=== PATIENT | male | born 2000 | race Hispanic/Latino ===

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

== ENCOUNTER 2020-03-19 13:30 | Outpatient (RCR) | payer OTHER, SELFPAY ==
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
== END 2020-03-19 19:00 | disposition home or self-care (01) ==
LOC: PT 13:30
PROVIDERS: PCP Pediatrics; Referring Provider Internal Medicine; Visit Provider Internal Medicine
DX: M54.5 Low back pain (principal); V89.2XXD Person injured in unspecified motor-vehicle accident, traffic, subsequent encounter
CPT/HCPCS: 97014; 97110; 97140; 97161; 97164; G0283